=== PATIENT | female | born 1965 | race Caucasian/White ===

== ENCOUNTER 2017-09-30 08:22 | Day surgery (SDC) | payer BC, OTHER ==
[~2017-09-30] VITALS: Ht 172.7 cm; Wt 70.4 kg
[~2017-09-30 08:22] MED LIST: ALLEGRA ALLERG180 MG PO; Armour Thyroid90 MG PO; CIPR500 PO; CLEM1.34; NAPR500 PO; OMEPRAZOLE MAGN20 MG PO; PANT40; PHENA200 PO; [UNRECOGNIZED DRUG - REMARK]
== END 2017-09-30 09:58 | disposition home or self-care (01) ==
LOC: ORSCSDS 08:22
PROVIDERS: Internal Medicine Gastroenterology
PROC: 0DJD8ZZ Inspection of Lower Intestinal Tract, Via Natural or Artificial Opening Endoscopic (ICD-10-PCS; principal; 2017-09-30 09:15)
DX: Z12.11 Encounter for screening for malignant neoplasm of colon (principal); K64.8 Other hemorrhoids; E03.9 Hypothyroidism, unspecified; K21.9 Gastro-esophageal reflux disease without esophagitis; F41.9 Anxiety disorder, unspecified; K85.90 Acute pancreatitis without necrosis or infection, unspecified; Z79.899 Other long term (current) drug therapy
CPT/HCPCS: J7120

== ENCOUNTER 2018-10-25 23:37 | Emergency (ER) | payer BC, OTHER ==
[~2018-10-25] VITALS: Ht 172.7 cm; Wt 67.6 kg
[2018-10-26 00:33] LABS: Source, Urine Clean Catch
[2018-10-26 00:36] LABS: Bilirubin, Urine Neg (Neg); Blood, Urine 4+ (Neg); Glucose Qualitative, Urine Neg (Neg); Ketones, Urine Neg (Neg); Leukocyte Esterase, Urine 3+ (Neg); Nitrite, Urine Neg (Neg); Protein, Urine 1+ (Neg); Urobilinogen, Urine NORM (Normal); pH, Urine 6.5 (5.0-8.0)
[2018-10-26 00:42] LABS: Appearance, Urine Hazy (Clear); Color, Urine Pale Yellow (P-Yellow)
[2018-10-26 00:43] LABS: Bacteria Many /hpf; Squamous Epithelial Cells Rare /hpf (Few); White Blood Cells, Urine TNTC /hpf (0-5)
[2018-10-26] MEDS ORDERED: Diflucan100 MG PO (01:09)
[2018-10-26] MEDS ORDERED: CEPH500 PO (01:09)
== END 2018-10-26 01:22 | disposition home or self-care (01) ==
LOC: ER 23:37
PROVIDERS: Emergency Medicine
DX: N39.0 Urinary tract infection, site not specified (principal); Z88.2 Allergy status to sulfonamides; Z79.899 Other long term (current) drug therapy; K21.9 Gastro-esophageal reflux disease without esophagitis
CPT/HCPCS: 81001

== ENCOUNTER 2019-12-05 20:51 | Emergency (ER) | payer BC, OTHER ==
[~2019-12-05] VITALS: Ht 172.7 cm; Wt 72.6 kg
[~2019-12-05 20:51] MED LIST changes: +CEPH500 PO; +Diflucan100 MG PO
== END 2019-12-05 23:35 | disposition home or self-care (01) ==
LOC: ER 20:51
DX: K12.0 Recurrent oral aphthae (principal); F41.0 Panic disorder [episodic paroxysmal anxiety]; Z88.2 Allergy status to sulfonamides; Z79.899 Other long term (current) drug therapy; Z79.2 Long term (current) use of antibiotics; E03.9 Hypothyroidism, unspecified; K21.9 Gastro-esophageal reflux disease without esophagitis
CPT/HCPCS: 99283

== ENCOUNTER → 2020-03-15 | Outpatient (CLI) | payer BC, OTHER | END | disposition home or self-care (01) | LOC: PLD 15:40 → LAB SHORT 15:40 | DX: D48.5 Neoplasm of uncertain behavior of skin (principal) | CPT/HCPCS: 88305 ==

== ENCOUNTER → 2020-04-18 | Outpatient (CLI) | payer BC, OTHER | END | disposition home or self-care (01) | LOC: PLD 11:12 → LAB SHORT 11:12 | DX: D48.5 Neoplasm of uncertain behavior of skin (principal) | CPT/HCPCS: 88305 ==

== ENCOUNTER → 2020-04-25 | Outpatient (CLI) | payer BC, OTHER | LOC: LAB SHORT 10:42 → PLD 10:42 | DX: D48.5 Neoplasm of uncertain behavior of skin (principal) | CPT/HCPCS: 88305 ==